=== PATIENT | male | born 1990 | race Caucasian/White ===

== ENCOUNTER 2023-11-23 11:25 | Emergency (ER) | payer OTHER, SELFPAY ==
[2023-11-23 11:32] VITALS: BP 138/75; PULSE 53; RESP 18; TEMP 37.1; O2SAT 100
--- NOTE | 2023-11-23 12:27 | ED.GENADULT ---
HPI - General Adult General Chief complaint: Dental/Oral Stated complaint: Toothache Source: patient Mode of arrival: ambulatory Limitations: no limitations History of Present Illness HPI narrative: Patient presents for evaluation of left lower dental pain. Symptom onset this morning. He has a known dental fracture in the affected area. Pain is constant, throbbing, 8/10 in severity. He took some [id number] agents without considerable improvement thereafter. No fever, chills, nausea, vomiting. He does use an electronic cigarette. Related Data Allergies Allergy/AdvReac Type Severity Reaction Status Date / Time No Known Allergies Allergy Verified 11/23/23 11:35 Review of Systems Review of Systems: CONSTITUTIONAL: Denies fever, chills, or sweats. EYES: Denies visual changes, redness, or discharge. ENT: Reports left lower dental pain. Denies rhinorrhea, congestion, sore throat, or otalgia. CARDIOVASCULAR: Denies chest pain, palpitations, or edema. RESPIRATORY: Denies cough or dyspnea. GASTROINTESTINAL: Denies abdominal pain, nausea, vomiting, or diarrhea. GENITOURINARY: Denies dysuria or hematuria. SKIN: Denies rash or itching. MUSCULOSKELETAL: Denies back pain, joint pain, or myalgia. NEUROLOGIC: Denies headache, numbness, dizziness, or weakness. PSYCHIATRIC: Denies anxiety or depression. [facility] Past Medical History Medical History No pertinent past medical history Surgical History Surgical History No pertinent past surgical history Family History Family History Mother Family history non-contributory Social History Social History Smoking status: Current every day smoker Tobacco type: e-cigarettes/vaping Substance use: never Gender identity (if verbalized by the patient): Male Spiritual care concerns: No Exam Narrative: GENERAL: Well-appearing, well-nourished, and in no acute distress. HEAD: Normocephalic, atraumatic. EYES: PERRLA and EOMI. ENT: Nares clear, no rhinorrhea or epistaxis. Mucous membranes moist. Oropharynx without tonsillar hypertrophy exudate or other lesions. There is a fracture of tooth #19. There is some swelling in the gumline adjacent to that fluctuance to suggest a drainable fluid collection. Bilateral TMs p[place] nonbulging NECK: Supple. No adenopathy or masses. No carotid bruits or JVD CHEST: Clear to auscultation. No respiratory distress. No wheezes rales or rhonchi HEART: Regular rate and rhythm. No murmur heard. Normal peripheral pulses. ABDOMEN: Soft, nontender, nondistended, normal active bowel sounds. EXTREMITIES: Normal range of motion. No edema. SKIN: Warm, dry, no rash. NEURO: No focal deficits. Alert and oriented x3. PSYCH: Normal mood and affect. Course Course Emergency Course: This is a 33-year-old male who presented for evaluation dental pain. He has a dental fracture in the affected area. Will treat with amoxicillin. Ibuprofen for pain. Follow-up with dentist. Advised on smoking cessation. Go to the ER for worsening symptoms. Patient in agreement with care. Level of Care: Express Care Visit Vital Signs Vital signs: Vital Signs Temperature 37.1 C 11/23/23 11:32 Pulse Rate 53 L 11/23/23 11:32 Respiratory Rate 18 11/23/23 11:32 Blood Pressure 138/75 11/23/23 11:32 Pulse Oximetry 100 11/23/23 11:32 Oxygen Delivery Room Air 11/23/23 11:32 Temperature 37.1 C 11/23/23 11:32 Pulse Rate 53 L 11/23/23 11:32 Respiratory Rate 18 11/23/23 11:32 Blood Pressure 138/75 11/23/23 11:32 Pulse Oximetry 100 11/23/23 11:32 Oxygen Delivery Room Air 11/23/23 11:32 Medical Decision Making Vital Signs Vital Signs: Vital Signs Temperature 37.1 C 11/22
== END 2023-11-23 12:26 | disposition home or self-care (01) ==
PROVIDERS: Emergency Provider Nurse Practitioner
DX: S02.5XXA Fracture of tooth (traumatic), initial encounter for closed fracture (principal); X58.XXXA Exposure to other specified factors, initial encounter; F17.290 Nicotine dependence, other tobacco product, uncomplicated
CPT/HCPCS: 99203; G0463

== ENCOUNTER 2024-03-15 13:26 | Emergency (ER) | payer OTHER, SELFPAY ==
[2024-03-15 13:41] VITALS: BP 121/60; PULSE 60; RESP 16; TEMP 36.9; O2SAT 99
--- NOTE | 2024-03-15 13:55 | ED_ITS ---
HPI - Back Pain/Injury General Chief Complaint: Back Pain/Injury Stated Complaint: Back Pain Time Seen by Provider: 03/15/24 13:55 Source: patient and RN notes reviewed Mode of arrival: ambulatory Limitations: no limitations History of Present Illness HPI Narrative: 33-year-old male presents with concern for low back pain. Reports pain started 3 days ago, reports he has had back pain in the past but this seems to be more painful than usual. He denies injury or trauma. He reports he can find a position of comfort and then it worsens with certain movements. He reports he does lift heavy boxes at work. He denies loss of bowel or bladder function, perianal seizure, abdominal pain, fever. He denies weakness in any extremity. He reports he took Aleve and Tylenol today without relief. MD elicited complaint: back pain Related Data Allergies Allergy/AdvReac Type Severity Reaction Status Date / Time No Known Allergies Allergy Verified 11/23/23 11:35 Review of Systems Review of Systems: CONSTITUTIONAL: Denies malaise, chills, sweats, or fever. CARDIOVASCULAR: Denies chest pain, palpitations, or edema. RESPIRATORY: Denies cough or dyspnea. GASTROINTESTINAL: Denies abdominal pain, nausea, vomiting, diarrhea, loss of bowel function GENITOURINARY: Denies dysuria, hematuria, frequency, loss of bladder function. SKIN: Denies rash or itching. MUSCULOSKELETAL: Reports low back pain NEUROLOGIC: Denies numbness, weakness, or headache. All systems reviewed & are unremarkable except as noted in HPI and below PMFSH Past Medical History Medical History (Updated 03/15/24 @ 14:06 by Anali Stack NP) No pertinent past medical history Surgical History Surgical History No pertinent past surgical history Family History Family History Mother Family history non-contributory Social History Social History (Updated 11/23/23 @ 12:28 by DANIEL Vega, ) Smoking status: Current every day smoker Tobacco type: e-cigarettes/vaping Substance use: never Gender identity (if verbalized by the patient): Male Spiritual care concerns: No Comments At time of signature, agree with nursing past medical, surgical, social and family history. There is no relevant family history pertinent to the presenting complaint Exam Narrative: GENERAL: Well-appearing, well-nourished, and in no acute distress. HEAD: Normocephalic, atraumatic. EYES: PERRLA and EOMI. NECK: Supple. No lymphadenopathy. CHEST: Clear to auscultation. No respiratory distress. HEART: Regular rate and rhythm. Distal pulses palpable and equal, cap refill <3 seconds ABDOMEN: Soft, nontender, nondistended, normal active bowel sounds, no palpable or pulsatile masses. No CVA tenderness MUSCULOSKELETAL: Normal range of motion and strength in all extremities; 5/5 strength with hip flexion and extension, dorsiflexion and extension, knee flexion and extension, plantar flexion and extension. Normal sensation in dermatomal distributions with sensitivity to light touch and pain. No midline back tenderness to palpation. No paraspinal tenderness. Transfers from lying to sitting to standing. SKIN: Warm, dry, no rash. No ecchymosis, erythema, open wounds to back. NEURO: No focal deficits. Alert and oriented x3. Reflexes intact. Normal gait. PSYCH: Normal mood and affect Course Course Emergency Course: Patient is aware of diagnosis, understands and agrees to treatment plan. Anticipatory guidance given. Patient agrees to follow-up as directed and is aware of reasons to seek care at the emergency department. Portions of this record may have been created with voice recognition software Level of Care: Express Care Visit Vital Signs Vital signs: Vital Signs Temperature 98.5 F 03/15/24 13:41 Pulse Rate 60 03/15/24 13:41 Respiratory Rate 16 03/15/24 13:41 Blood Pressure 121/60 03/15/24 13:41 Pulse Oximetry 99 03/15/24 13:41 Oxygen Delivery Room Air 03/15/24 13:41 Temperature 98.5 F 03/15/24 13:41 Pulse Rate 60 03/15/24 13:41 Respiratory Rate 16 03/15/24 13:41 Blood Pressure 121/60 03/15/24 13:41 Pulse Oximetry 99 03/15/24 13:41 Oxygen Delivery Room Air 03/15/24 13:41 Reviewed. MDM - Back Pain/Injury MDM Narrative Medical decision making narrative: I evaluated this in the express care. History is obtained from patient who is an independent historian and physical exam was performed.? Available medical records were reviewed. ? Exam findings and relevant testing show no acute concerns or changes; patient is non-toxic appearing and is in no distress. No risk factors or findings concerning for epidural abscess, diskitis, vertebral osteomyelitis, cord compression, cauda equina, vertebral fracture or bone malignancy, AAA, or pyelonephritis. Patient instructed to consider further imaging and workup through their primary care physician as an outpatient if symptoms persist. ? Differential diagnosis and treatment plan were discussed with the patient. Patient agrees with discussion and after shared medical decision making agrees with plan of care. All questions were answered to the patient's satisfaction. Patient is appropriate for outpatient treatment and follow-up. Critical Care Time Critical Care Time Critical Care Time: No Discharge Plan Discharge Clinical Impression: Nonspecific low back pain Patient Disposition: Home, Self-Care Condition: Stable Instructions: Back Pain (ED) Additional Instructions: Please follow up with your Primary Care Doctor within 48-72 hours - call for an appointment. Walking and other gentle exercising several times a week has been shown to improve back pain; bed rest is not recommended. Take Motrin 600-800mg every 6-8 hours with food for the next 2-3 days, take muscle relaxers every 8 hours as needed for muscle spasm- do not drive or make any important decisions while on this medication for it can make you drowsy. You may apply heat or cold to the area as needed. If you experience any worsening pain, swelling, numbness, weakness please go to ER. Contact your doctor or go to the emergency department if you develop problems with bladder or bowel function, weakness or loss of feeling in one or both of your legs, or any other serious concerns. Prescriptions: New cyclobenzaprine 10 mg tablet 10 mg PO TID PRN (Reason: muscle spasm) Qty: 20 0RF prednisone 50 mg tablet 50 mg PO DAILY 5 Days Qty: 5 0RF Follow-up/Referrals: PHYSICIAN,CABLE SPLICER APPRENTICE [Primary Care Provider] - Stand Alone Forms: Work/School Release IP Time of Disposition: 14:06
== END 2024-03-15 14:10 | disposition home or self-care (01) ==
PROVIDERS: Emergency Provider Nurse Practitioner
DX: M54.50 Low back pain, unspecified (principal); F17.290 Nicotine dependence, other tobacco product, uncomplicated
CPT/HCPCS: 99213; G0463

== ENCOUNTER 2024-05-26 09:20 | Emergency (ER) | payer OTHER, SELFPAY ==
[2024-05-26 09:24] VITALS: BP 119/71; PULSE 88; RESP 16; TEMP 36.6; O2SAT 100
--- OUTSIDE RECORDS SUMMARY | 2024-05-26 09:50 | XMS_ITS | Clinical Summary ---
Author Organization [facility] [email or web address] [facility] Address [address] [place] [id number] Care Team Providers Care Snapper On Name Role Phone Unavailable Primary Care Provider Unavailabl e Medications fluticasone propionate (FLONASE) 50 mcg/spray [place], Suspension nasal inhalerIndicatio ns:Allergic rhinitis, unspecified seasonality, unspecified trigger Administer 2 Sprays in each nostril daily. 16 Gram Active Active Problems Problem Noted Date Diagnosed Date Allergic rhinitis 02/10/2023 Immunizations Immunization Administration Dates Next Due (ADACEL/BOOSTRIX)(10 YR UP) TDAP VACCINE, 0.5ML, IM 02/10/2023 INFLUENZA VACCINE QUADRIVALENT 3 YR UP PF IM 08/2021 INFLUENZA VACCINE QUADRIVALENT 6 MOS UP PF IM Family History Medical History Relation Name Comments Other Father cysticfibrosis due to surgery failure No Known Problems Maternal Grandfather Diabetes Mother Arrhythmia Paternal Grandfather Relation Name Status Comments Brother 1 Alive Brother 2 Alive Daughter Alive Father Maternal Grandfather Maternal Grandmother Alive Mother Alive Paternal Grandfather Paternal Grandmother Alive Sister 1 Alive Sister 2 Alive Son Alive Social History Tobacco Use Types Packs/Day Years Used Date Smoking Tobacco: Former Cigarettes 0.5 15 0 07/30/2007 - 07/29/2022 Smokeless Tobacco: Never Tobacco Cessation:Counseling Given: Not Answered Alcohol Use Standard Drinks/Week Comments Not Currently 0 (1 standard drink = 0.6 oz pur e alcohol) special occasions Sex and Gender Information Value Date Recorded Sex Assigned at Not on file Legal Sex Male 9:42 AM CDT Gender Identity Not on file Sexual Orientation Not on file Last Filed Vital Signs Vital Sign Reading Time Taken Comments Blood Pressure 112/58 02/10/2023 7:47 AM CDT Pulse 71 02/10/2023 7:47 AM CDT Temperature 36.9 ??C (98.4 ??F) 02/10/2023 7:47 AM CD T Respiratory Rate - - Oxygen Saturation 98% 02/10/2023 7:47 AM CDT Inhaled Oxygen Concentration - - Weight 118.5 kg (261 lb 3.2 oz) 02/10/2023 7:47 AM CDT Height 193 cm (6' 4 ) 02/10/2023 7:47 AM CDT Body Mass Index 31.79 02/10/2023 7:47 AM CDT Plan of Treatment Health Maintenance Due Date Last Done Comments HEPATITIS B VACCINES (1 of 3 - 19+ 3-dose series) 07/11/2011 INFLUENZA VACCINE (#1) 2023 3, 01/23/2022 DTAP/TDAP/TD VACCINES (2 - Td or Tdap) 02/10/2033 02/10/2023 HPV VACCINES Aged Out No longer eligi ble based on patient's age to complete this topic
--- OUTSIDE RECORDS SUMMARY | 2024-05-26 09:51 | XMS_ITS | Clinical Summary ---
Author Organization [facility] Address [address] [place] [address] Care Team Providers Care Etcher Apprentice Name Role Phone No, Physician Primary Care Provider [phone] Allergies No known active allergies Medications No known medications Active Problems No known active problems Social History Tobacco Use Types Packs/Day Years Used Date Smoking Tobacco: Every Day Cigarettes Smokeless Tobacco: Never Tobacco Cessation:Ready to Q uit: Not Asked; Counseling Given: Not Answered Alcohol Use Standard Drinks/Week Comments Not Currently 0 (1 standard drink = 0.6 oz pur e alcohol) Personal Safety Answer Date Recorded Getting School Help Needed Not on file 06/10 Sex and Gender Information Value Date Recorded Sex Assigned at Not on file 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 Gender Identity Not on file Sexual Orientation Not on file Obstetrics History Last Filed Vital Signs Vital Sign Reading Time Taken Comments Blood Pressure 108/64 10/16/2023 8:48 AM CDT Pulse 68 10/16/2023 8:48 AM CDT Temperature 36.8 ??C (98.3 ??F) 10/16/2023 8:48 AM CD T Respiratory Rate 18 10/16/2023 8:48 AM CDT Oxygen Saturation 98% 10/16/2023 8:48 AM CDT Inhaled Oxygen Concentration - - Weight 120.2 kg (265 lb) 10/16/2023 8:48 AM CDT Height 193 cm (6' 4 ) 10/16/2023 8:48 AM CDT Body Mass Index 32.26 10/16/2023 8:48 AM CDT Plan of Treatment Health Maintenance Due Date Last Done Comments Depression Screening 1992 Hepatitis C Screening 1992 Pneumococcal vaccine <65 (1 of 2 - PCV) 1998 Regular Well Visit/Exam 18-64 2010 Covid-19 Vaccine ( season) 2023 08/01/2020 Influenza Vaccine (#1) 2023 01/16/2023, 2021 DTaP/Tdap/Td Vaccine (8 - Td or Tdap) 02/10/2033 02/10/2023, 11/11/2006, 07/13/2003, Additional history exists Varicella Vaccines Completed 11/11/2006, 08/13/2002 HPV Vaccines Aged Out No longer eligi ble based on patient's age to complete this topic Insurance [employer] Care Teams Etcher Apprentice Relationship Specialty Start Date End Date No, Physician PCP - General 04/05/21
--- OUTSIDE RECORDS SUMMARY | 2024-05-26 09:51 | XMS_ITS | Referral Summary ---
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
--- OUTSIDE RECORDS SUMMARY | 2024-05-26 09:51 | XMS_ITS | Clinical Summary ---
Author Organization [facility] Address [address] [place] [address] Phone Care Team Providers Care Labor Utilization Superintendent Name Role Phone Nazia Corona APRN, PRODUCT HANDLER Primary Care Provider [phone] Allergies No known active allergies Medications naproxen (NAPROSYN) 500 MG TabletIndicati ons:Pain Take 1 Tablet by mouth 2 times daily as needed for Mild or more severe pain. Indications: Pain 30 Tablet 2 5 Active cyclobenzaprin e (FLEXERIL) 5 MG TabletIndicati ons:Muscle Spasm Take 2 Tablets by mouth 3 times daily as needed for Muscle spasms for up to 14 days. Indications: Muscle Spasm 42 Tablet 5 05/26/19 25 Active Lidocaine (HM Lidocaine Patch) 4 % Patch 1 Patch by Transdermal route every 24 hours. 30 Patch 5 Active naproxen (NAPROSYN) 500 MG Tablet Take 1 Tablet by mouth 2 times daily as needed for Mild or more severe pain. 20 Tablet 4 05/12/19 25 Discontin ued(Dupli stephanie Order) naproxen (NAPROSYN) 500 MG Tablet Take 1 Tablet by mouth 2 times daily as needed for Mild or more severe pain. 30 Tablet 4 05/12/19 25 Discontin ued(Reord er) Cyclobenzaprin e HCl (FLEXERIL PO) Take by mouth. 0 25 Discontin ued(Thera py completed ) Active Problems No known active problems Encounters Date Type Department Care Team Description 05/20/2024 3:15 PM WOOD CARVING LATHE OPERATOR Physical Therapy [facility] at [facility] [address], [address] [place] [address] Oehl, Nazia N, CORNER TRIMMER OPERATOR, PRODUCT HANDLER Urban De La Torre, SILVANO Acute left lumbar radiculopathy (Primary Dx) Discharge Disposition: Discharged to home or Selfcare 05/20/2024 Travel 05/12/2024 7:30 AM WOOD CARVING LATHE OPERATOR [facility] [facility] [place] [address] Oehl, Nazia N, CORNER TRIMMER OPERATOR, PRODUCT HANDLER Acute left lumbar radiculopathy (Primary Dx) Discharge Disposition: Discharged to home or Selfcare 05/12/2024 Travel 05/08/2024 Plan of Care [facility] [address], [address] [place] [address] 05/06/2024 3:45 PM WOOD CARVING LATHE OPERATOR [facility] [address] [place] [address] Oehl, July N, CORNER TRIMMER OPERATOR, PRODUCT HANDLER Monse Wharton, PT Abnormal posture (Primary Dx); Acute left lumbar radiculopathy; Weakness Discharge Disposition: Discharged to home or Selfcare 05/06/2024 Travel 04/05/2024 Results [facility] [facility] [place] [address] Oehl, July N, CORNER TRIMMER OPERATOR, PRODUCT HANDLER 04/05/2024 Results [facility] [address] [facility] [place] [address] Oehl, July N, CORNER TRIMMER OPERATOR, PRODUCT HANDLER 04/03/2024 8:15 AM WOOD CARVING LATHE OPERATOR - 04/03/2024 11:59 PM WOOD CARVING LATHE OPERATOR [facility] [address] [place] [address] Oehl, Nazia N, CORNER TRIMMER OPERATOR, PRODUCT HANDLER Discharge Disposition: Discharged to home or Selfcare 04/03/2024 Travel 03/31/2024 4:15 PM WOOD CARVING LATHE OPERATOR [facility] [place] [address] Nazia Corona APRN, CNP Acute left lumbar radiculopathy (Primary Dx) Discharge Disposition: Discharged to home or Selfcare 03/30/2024 6:16 AM WOOD CARVING LATHE OPERATOR - 03/30/2024 6:57 AM WOOD CARVING LATHE OPERATOR Emergency [facility] [address] [place] [address] Rodolfo Lacey MD Acute midline low back pain without sciatica Discharge Disposition: Discharged to home or Selfcare 03/30/2024 Travel 03/29/2024 4:00 PM WOOD CARVING LATHE OPERATOR Office Visit [facility] [address] [place] [address] Nazia Corona APRN, CNP Need for influenza vaccination (Primary Dx); Environmental and seasonal allergies; Gastroesophageal reflux disease without esophagitis; Need for hepatitis C screening test; Encounter for health maintenance examination in adult; Hypertrophy tonsils Discharge Disposition: Discharged to home or Selfcare 03/29/2024 Travel 03/24/2024 Telephone [facility] [address] [place] [address] Nazia Corona APRN, CNP from Last 3 Months Immunizations Immunization Administration Dates Next Due Covid-19 Vaccine, Vector-nr, Rs-ad26, Pf, 0.5 Ml (CDNlion/J&Trak) 08/01/2020 DTAP VACCINE 11/25/1997 DTP-Hib 11/13/1993, 3,1992,09/15 Hepatitis A, Pediatric, Unsp ecified Formulation 11/11/2006 Hepatitis B Vaccine,unspecif ied Formulation 01/29/1993,1992,1992 Influenza Vaccine, Quadrivalent, PF 01/16/2023,1 Influenza,Split Virus,Trivalent,Injectable,PF 03/29/2024 MMR Vaccine 11/25/1997,11/13/1993 Meningococcal C Conjugate Vaccine 11/11/2006 OPV 11/13/1993,1992,1992 Oral Polio Vaccine, Unspecif ied Formulation 11/25/1997 TD VACCINE 07/13/2003 TDAP Vaccine 02/10/2023,11/11/2006 Varicella Vaccine Live 11/11/2006,08/13/2002 Family History Medical History Relation Name Comments Cystic Fibrosis Father Diabetes Maternal Grandfather Diabetes Mother Relation Name Status Comments Brother Alive Father Maternal Grandfather Maternal Grandmother Mother Paternal Grandfather Paternal Grandmother Alive Sister Alive Social History Tobacco Use Types Packs/Day Years Used Date Smoking Tobacco: Former Cigarettes Smokeless Tobacco: Never Tobacco Cessation:Counseling Given: No Alcohol Use Standard Drinks/Week Comments Not Currently 0 (1 standard drink = 0.6 oz pur e alcohol) Socially [employer] Utilities Answer Date Recorded In the past 12 months has e [employer], gas, oil, or water [employer] threatened to shut off services in your home? No 05/12/2024 Social Connection and Isolation Panel [NHANES] A nswer Date Recorded In a typical week, how many times do you talk on the phone with family, friends, or neighbors? Once a week 05/12/2024 How often do you get together with friends or re latives? Once a week 05/12/2024 How often do you attend mormon or yarsanism serv ices? Never 05/12/2024 Do you belong to any clubs o r organizations such as mormon groups, unions, fraternal or athletic groups, or school groups? No 05/12/2024 How often do you attend meet ings of the clubs or organizations you belong to? Never 05/12/2024 Are you , , di vorced, , never , or living with a partner? Never 05/12/2024 AUDIT-C Answer Date Recorded Q1: How often do you have a drink containing alcohol? Never 05/12/2024 Q2: How many drinks containi ng alcohol do you have on a typical day when you are drinking? Patient does not drink Q3: How often do you have si x or more drinks on one occasion? Never 05/12/2024 Overall Financial Resource Strain (CARDIA) Answe r Date Recorded How hard is it for you to pa y for the very basics like food, housing, medical care, and heating? Not very hard 05/12/2024 PHQ-2 Answer Date Recorded Total Score - Questions 1-9 0 12/2023 [facility] of Occupat ional Health - Occupational Stress Questionnaire Answer Date Recorded Do you feel stress - tense, restless, nervous, or anxious, or unable to sleep at night because your mind is troubled all the time - these days? Only a little 05/12/2024 Exercise Vital Sign Answer Date Recorde d On average, how many days pe r week do you engage in moderate to strenuous exercise (like a brisk walk)? 5 days 05/12/2024 On average, how many minutes do you engage in exercise at this level? 10 min 05/12/2024 Hunger Vital Sign Answer Date Recorded Within the past 12 months, y ou worried that your food would run out before you got the money to buy more. Never true 05/12/19 25 Within the past 12 months, t he food you bought just didn't last and you didn't have money to get more. Never true 05/12/2024 PRAPARE - Transportation Answer Date Re corded In the past 12 months, has l ack of transportation kept you from medical appointments or from getting medications? No 04/22 In the past 12 months, has l ack of transportation kept you from meetings, work, or from getting things needed for daily living? No 05/12/2024 Housing Stability Vital Sign Answer Deejay e Recorded In the last 12 months, was t here a time when you were not able to pay the mortgage or rent on time? No 05/12/2024 In the past 12 months, how m any times have you moved where you were living? 1 05/12/2024 At any time in the past 12 m [facility], were you homeless or living in a usp (including now)? No 05/12/2024 Education Answer Date Recorded What is the highest level of school you have completed or the highest degree you have received? 12th grade 03/29/2024 Sexually Active Control Partners Comments Yes None Female Sex and Gender Information Value Date Recorded Sex Assigned at Not on file Legal Sex Male 3:54 AM WOOD CARVING LATHE OPERATOR Gender Identity Not on file Sexual Orientation Not on file Last Filed Vital Signs Vital Sign Reading Time Taken Comments Blood Pressure 128/76 05/12/2024 7:35 AM WOOD CARVING LATHE OPERATOR Pulse 66 05/12/2024 7:35 AM WOOD CARVING LATHE OPERATOR Temperature 36.7 ??C (98.1 ??F) 05/12/2024 7:35 AM CS T Respiratory Rate 16 05/12/2024 7:35 AM WOOD CARVING LATHE OPERATOR Oxygen Saturation 99% 05/12/2024 7:35 AM WOOD CARVING LATHE OPERATOR Inhaled Oxygen Concentration - - Weight 132.5 kg (292 lb 1.6 oz) 05/12/2024 7:35 AM WOOD CARVING LATHE OPERATOR Height 193 cm (6' 4 ) 05/12/2024 7:35 AM WOOD CARVING LATHE OPERATOR Body Mass Index 35.56 05/12/2024 7:35 AM WOOD CARVING LATHE OPERATOR Plan of Treatment Upcoming Encounters Date Type Department Care Team (Late st Contact Info) Description 05/27/2024 3:15 PM WOOD CARVING LATHE OPERATOR [facility] [address] [place] [address] Oe, July N, CORNER TRIMMER OPERATOR, PRODUCT HANDLER 2 [facility] [address] [place] [address] Urban De La Torre PTA [place] 05/31/2024 3:00 PM WOOD CARVING LATHE OPERATOR [facility] [address] [place] [address] Oe, July N, CORNER TRIMMER OPERATOR, PRODUCT HANDLER 2 [facility] [address] [place] [address] Monse Wharton PT [place] 06/01/2024 3:30 PM WOOD CARVING LATHE OPERATOR Office Visit [facility] - Family Medicine [facility] [place] [address] Oehl, July N, CORNER TRIMMER OPERATOR, PRODUCT HANDLER 2 [facility] [address] [place] [address] 06/03/2024 3:00 PM WOOD CARVING LATHE OPERATOR [facility] [address] [facility], [address] [place] [address] Oehl, July, CORNER TRIMMER OPERATOR, PRODUCT HANDLER 2 [facility] [address] [place] [address] Monse Wharton, PT [place] 06/08/2024 3:15 PM WOOD CARVING LATHE OPERATOR [facility] [address] [facility], [address] [place] [address] Oe, July, CORNER TRIMMER OPERATOR, PRODUCT HANDLER 2 [facility] [address] [place] [address] Urban De La Torre, TRIPE SCRAPER [place] 06/10/2024 3:15 PM WOOD CARVING LATHE OPERATOR [facility] [address] [facility], [address] [place] [address] Oe, July, CORNER TRIMMER OPERATOR, PRODUCT HANDLER 2 [facility] [address] [place] [address] Urban De La Torre, TRIPE SCRAPER [place] 06/15/2024 3:00 PM WOOD CARVING LATHE OPERATOR [facility] [address] [facility], [address] [place] [address] Oe, July, CORNER TRIMMER OPERATOR, PRODUCT HANDLER 2 [facility] [address] [place] [address] Monse Wharton, PT [place] 06/17/2024 3:15 PM WOOD CARVING LATHE OPERATOR [facility] [address] [place] [address] Oehl, July N, CORNER TRIMMER OPERATOR, PRODUCT HANDLER 2 [facility], [address] [place] [address] Urban De La Torre, TRIPE SCRAPER [place] 06/22/2024 3:15 PM WOOD CARVING LATHE OPERATOR [facility] [address] [place] [address] Oehl, July, CORNER TRIMMER OPERATOR, PRODUCT HANDLER 2 [facility], [address] [place] [address] Urban De La Torre, TRIPE SCRAPER [place] 06/24/2024 3:15 PM WOOD CARVING LATHE OPERATOR [facility] [address] [facility], [address] [place] [address] Oehl, July, CORNER TRIMMER OPERATOR, PRODUCT HANDLER 2 [facility], [address] [place] [address] Urban De La Torre, TRIPE SCRAPER [place] 06/29/2024 3:00 PM CDT [facility] [address] [facility], [address] [place] [address] Oehl, July, CORNER TRIMMER OPERATOR, PRODUCT HANDLER 2 [facility], [address] [place] [address] Monse Wharton, PT [place] 07/13/2024 3:30 PM CDT Office Visit [facility] - Family Medicine [facility] [place] [address] Oehl, July, CORNER TRIMMER OPERATOR, PRODUCT HANDLER 2 [facility], [address] [place] [address] Health Maintenance Due Date Last Done Comments SARS-COV-2 Immunization ( - season) 2023 08/01/2020 DTaP/Tdap/Td Immunization (8 - Td or Tdap) 02/10/2033 02/10/2023, 11/11/2006, 07/13/2003, Additional history exists Respiratory Syncytial Virus (RSV) Immunization (Adult) (1 - 1-dose 75+ series) 07/11/2067 Hepatitis B Immunization Completed 993, 1992, 1992 Influenza Immunization Completed , 01/16/2023, 01/23/2022 Hepatitis C Virus (HCV) Screening Completed 04/03/2024 Meningococcal Immunization (ACWY) Aged Out No longer eligible based on patient's age to complete this topic Pneumococcal Immunization Combined Aged Out No longer eligible based on patient's age to complete this topic Rotavirus Immunization Aged Out No lo nger eligible based on patient's age to complete this topic Procedures Procedure Name Priority Date/Time Associated Diagnosis Comments XR LUMBAR SPINE MINIMUM 4 VIEWS Routine 04/03/2024 8:44 AM WOOD CARVING LATHE OPERATOR Acute left lumbar radiculopathy CBC WITH AUTO DIFFERENTIAL Routine 04/03/2024 8:20 AM WOOD CARVING LATHE OPERATOR Encounter for health maintenance examination in adult HEPATITIS C ANTIBODY Routine 04/03/2024 8:20 AM WOOD CARVING LATHE OPERATOR Need for hepatitis C screening test HEMOGLOBIN A1C W/ ESTIMATED GLUCOSE Routine 04/03/2024 8:20 AM WOOD CARVING LATHE OPERATOR Encounter for health maintenance examination in adult THYROID STIMULATING HORMONE (TSH) Routine 04/03/2024 8:20 AM WOOD CARVING LATHE OPERATOR Encounter for health maintenance examination in adult LIPID PANEL Routine 04/03/2024 8:20 AM WOOD CARVING LATHE OPERATOR Encounter for health maintenance examination in adult COMPLETE BLOOD COUNT (CBC) WITH DIFF Routine 04/03/2024 8:20 AM WOOD CARVING LATHE OPERATOR Encounter for health maintenance examination in adult CMP (COMPREHENSIVE METABOLIC PANEL) Routine 04/03/2024 8:20 AM WOOD CARVING LATHE OPERATOR Encounter for health maintenance examination in adult from Last 3 Months Results * XR LUMBAR SPINE MINIMUM 4 VIEWS (04/03/2024 8:44 AM WOOD CARVING LATHE OPERATOR) Anatomical Region Laterality Modality Spine, L-spine N/A Digital Radiogra phy 04/04/2024 12:4 6 PM WOOD CARVING LATHE OPERATOR Impressions 04/04/2024 12:48 PM WOOD CARVING LATHE OPERATOR IMPRESSION: Mild retrolisthesis of L5 on S1. Narrative 04/04/2024 12:48 PM WOOD CARVING LATHE OPERATOR EXAM DESCRIPTION: XR LUMBAR SPINE MINIMUM 4 VIEWS REASON FOR STUDY: pain in low back, tailbone x 1 month. NKI. denies numbness/tingling in legs. pt states recently pain radiates to left knee. ? FINDINGS: Five views submitted with comparison 07/03/2023. No acute fractures are identified. ??There is mild retrolisthesis of L5 on S1. ??The intervertebral disc space heights are normal. THIS IS AN ELECTRONICALLY VERIFIED FINAL REPORT 04/04/2024 12:46 PM - Electronically signed by ??Dre Hunter M.D. MF: [email or web address] D: ??04/04/2024 12:46 PM T: ??04/04/2024 12:46 PM Report ID: [id number] Reading Location: ??[id number] Procedure Note Dre Hunter MD - 04/04/2024 EXAM DESCRIPTION: XR LUMBAR SPINE MINIMUM 4 VIEWS REASON FOR STUDY: pain in low back, tailbone x 1 month. NKI. denies numbness/tingling in legs. pt states recently pain radiates to left knee. FINDINGS: Five views submitted with comparison 07/03/2023. No acute fractures are identified. There is mild retrolisthesis of L5 on S1. The intervertebral disc space heights are normal. THIS IS AN ELECTRONICALLY VERIFIED FINAL REPORT 04/04/2024 12:46 PM - Electronically signed by Dre Hunter M.D. MF: [id number] Report ID: [id number] Reading Location: [id number] IMPRESSION: Mild retrolisthesis of L5 on S1. July N Chloe ABEBE CNP IMG DIAGNOSTIC ORDERABLES Final Result * HEMOGLOBIN A1C W/ ESTIMATED GLUCOSE (04/03/2024 8:20 AM WOOD CARVING LATHE OPERATOR) HGB-A1C 4.9 4.0 - 6.0 % 04/03/2024 9:21 AM WOOD CARVING LATHE OPERATOR [facility] Est Average Glucose 93.9 mg/dL 04/03/2024 9:21 AM WOOD CARVING LATHE OPERATOR [facility] Blood Venipuncture / Unknown 04/03/2024 8:20 AM WOOD CARVING LATHE OPERATOR 04/03/2024 9:06 AM WOOD CARVING LATHE OPERATOR Narrative [facility] - 04/03/2024 9:21 AM WOOD CARVING LATHE OPERATOR HEMOGLOBIN A1C: DIABETIC PATIENTS: WELL-CONTROLLED: ?? 6.2 - 7.0 INTERMEDIATE WELL-CONTROLLED: ??7.0 - 9.0 POORLY-CONTROLLED: ??>9.0 July Chloe ABEBE CNP CHEMISTRY ORDERABLES Michelle l Result [facility] [address] [place] [address] * CBC WITH AUTO DIFFERENTIAL (04/03/2024 8:20 AM WOOD CARVING LATHE OPERATOR) WBC 7.06 4.00 - 12.00 10(3)/mcL 04/03/2024 9:12 AM WOOD CARVING LATHE OPERATOR [facility] RBC 4.71 4.40 - 5.80 10(6)/mcL 04/03/2024 9:12 AM WOOD CARVING LATHE OPERATOR [facility] HEMOGLOBIN (HGB) 14.3 13.0 - 16.5 g/dL 04/03/2024 9:12 AM WOOD CARVING LATHE OPERATOR [facility] HEMATOCRIT (HCT) 41.5 38.0 - 50.0 % 04/03/2024 9:12 AM WOOD CARVING LATHE OPERATOR [facility] MCV 88.1 82.0 - 96.0 fL 04/03/2024 9:12 AM [facility] MCH 30.4 26.0 - 32.0 pg 04/03/2024 9:12 AM [facility] MCHC 34.5 31.0 - 36.0 g/dL 04/03/2024 9:12 AM [facility] PLATELET COUNT 233 140 - 440 10(3)/[facility] 04/03/2024 9:12 AM [facility] RDW 11.9 11.8 - 15.5 % 04/03/2024 9:12 AM [facility] MPV 9.6 8.0 - 12.6 fL 04/03/2024 9:12 AM [facility] NEUTROPHILS 55.9 40.0 - 68.0 % 04/03/2024 9:12 AM [facility] LYMPHOCYTES 29.5 19.0 - 49.0 % 04/03/2024 9:12 AM [facility] MONOCYTES 9.8 3.0 - 13.0 % 04/03/2024 9:12 AM [facility] EOSINOPHILS 4.0 0.0 - 8.0 % 04/03/2024 9:12 AM [facility] BASOPHILS 0.8 0.0 - 1.0 % 04/03/2024 9:12 AM [facility] ABSOLUTE NEUTROPHILS 3.95 1.40 - 5.30 10(3)/mcL 04/03/2024 9:12 AM [facility] ABSOLUTE LYMPHOCYTES 2.08 0.90 - 3.30 10(3)/mcL 04/03/2024 9:12 AM [facility] ABSOLUTE MONOCYTES 0.69 0.10 - 0.90 10(3)/mcL 04/03/2024 9:12 AM [facility] ABSOLUTE EOSINOPHIL 0.28 0.00 - 0.50 10(3)/[facility] 04/03/2024 9:12 AM [facility] ABSOLUTE BASOPHILS 0.06 0.00 - 0.10 10(3)/mcL 04/03/2024 9:12 AM WOOD CARVING LATHE OPERATOR [facility] NRBC PER 100 WBC 0 04/03/20 9:12 AM WOOD CARVING LATHE OPERATOR [facility] Blood Venipuncture / Unknown 04/03/2024 8:20 AM WOOD CARVING LATHE OPERATOR 04/03/2024 9:06 AM WOOD CARVING LATHE OPERATOR July N Chloe ABEBE CNP HEMATOLOGY ORDERABLES Fin al Result [facility] [place] [address] * THYROID STIMULATING HORMONE (TSH) (04/03/2024 8:20 AM WOOD CARVING LATHE OPERATOR) TSH 1.049 0.300 - 5.000 mIU/L 04/03/2024 9:52 AM WOOD CARVING LATHE OPERATOR [facility] Blood Venipuncture / Unknown 04/03/2024 8:20 AM WOOD CARVING LATHE OPERATOR 04/03/2024 9:06 AM WOOD CARVING LATHE OPERATOR July N Chloe ABEBE CNP CHEMISTRY ORDERABLES Michelle l Result Performing Organization Address City/[facility]/ZIP Co de Phone Number [facility] [address] [place] [address] * (ABNORMAL) LIPID PANEL (04/03/2024 8:20 AM WOOD CARVING LATHE OPERATOR) CHOLESTEROL 128 <200 mg/dL 04/03/2024 9:40 AM WOOD CARVING LATHE OPERATOR [facility] TRIGLYCERIDES 39 <150 mg/dL 04/03/2024 9:40 AM WOOD CARVING LATHE OPERATOR [facility] HDL CHOLESTEROL 44 >40 mg/dL 9:40 AM WOOD CARVING LATHE OPERATOR [facility] LDL 76 <130 mg/dL 04/03/2024 9:40 AM WOOD CARVING LATHE OPERATOR [facility] VLDL 8(L) 10 - 50 mg/dL 04/03/2024 9:40 AM WOOD CARVING LATHE OPERATOR [facility] CHOL/HDL RATIO 2.9 0.0 - 4.4 04/03/2024 9:40 AM WOOD CARVING LATHE OPERATOR [facility] NON-HDL CHOLESTEROL 84 <130 mg/dL 04/03/2024 9:40 AM WOOD CARVING LATHE OPERATOR [facility] IS THE PATIENT REQUIRED TO BE FASTING? Yes 04/03/2024 9:40 AM WOOD CARVING LATHE OPERATOR [facility] HAS THE PATIENT BEEN FASTING? Yes 04/03/2024 9:40 AM WOOD CARVING LATHE OPERATOR [facility] Blood Venipuncture / Unknown 04/03/2024 8:20 AM WOOD CARVING LATHE OPERATOR 04/03/2024 9:06 AM WOOD CARVING LATHE OPERATOR July N Chloe ABEBE, PRODUCT HANDLER CHEMISTRY ORDERABLES Michelle l Result Performing Organization Address [facility] Co de Phone Number [facility] [address] [place] [address] * HEPATITIS C ANTIBODY (04/03/2024 8:20 AM WOOD CARVING LATHE OPERATOR) hepatitis C antibody 0.11 <1 S/CO 04/03/2024 3:20 PM WOOD CARVING LATHE OPERATOR [facility] Comment: Signal/Cutoff ratio ??< 0.79 is Nondetected Signal/Cutoff ratio 0.80-0.99 is Grayzone Signal/Cutoff ratio > 0.99 is Detected Supplemental assays are recommended if signal/cutoff ratio is >/=1.00. ??Signal/cutoff ratio result >/= 5.00 is 97% predictive of positivity for recombinant immunoblot assay (RIBA) and will be reported to the [place] Department of Public Health as required. Blood Venipuncture / Unknown 04/03/2024 8:20 AM WOOD CARVING LATHE OPERATOR 04/03/2024 9:06 AM WOOD CARVING LATHE OPERATOR july N Chloe ABEBE, PRODUCT HANDLER CHEMISTRY ORDERABLES Michelle l Result Performing Organization Address City/[facility]/ZIP Co de Phone Number [facility] [address] [place] [address], [place] * (ABNORMAL) CMP (COMPREHENSIVE METABOLIC PANEL) (04/03/2024 8:20 AM [facility]) SODIUM 141 136 - 145 mmol/L 04/03/2024 9:40 AM [facility] POTASSIUM 4.0 3.5 - 5.1 mmol/L 04/03/2024 9:40 AM [facility] CHLORIDE 109(H) 98 - 107 mmol/L 04/03/2024 9:40 AM [facility] CO2, VENOUS 27 22 - 30 mmol/L 04/03/2024 9:40 AM [facility] ANION GAP 9.0 <18.0 mmol/L 04/03/2024 9:40 AM [facility] GLUCOSE 90 70 - 99 mg/dL 04/03/2024 9:40 AM [facility] BUN 17 9 - 21 mg/dL 04/03/2024 9:40 AM [facility] CREATININE, BLOOD 1.04 0.70 - 1.30 mg/dL 04/03/2024 9:40 AM [facility] BUN/CREATININE RATIO 16 12 - 20 ratio 04/03/2024 9:40 AM [facility] TOTAL PROTEIN 6.6 6.3 - 8.2 g/dL 04/03/2024 9:40 AM [facility] ALBUMIN 3.8 3.5 - 5.0 g/dL 04/03/2024 9:40 AM [facility] A/G RATIO 1.4 1.0 - 2.2 04/03/2024 9:40 AM [facility] CALCIUM 8.9 8.7 - 10.5 mg/dL 04/03/2024 9:40 AM [facility] T BILI 0.9 0.2 - 1.2 mg/dL 04/03/2024 9:40 AM [facility] SGOT (AST) 16 5 - 34 U/L 04/03/2024 9:40 AM [facility] SGPT (ALT) 20 0 - 55 U/L 04/03/2024 9:40 AM WOOD CARVING LATHE OPERATOR [facility] ALKALINE PHOSPHATASE 48 40 - 150 U/L 04/03/2024 9:40 AM WOOD CARVING LATHE OPERATOR [facility] IS THE PATIENT REQUIRED TO BE FASTING? No 04/03/2024 9:40 AM WOOD CARVING LATHE OPERATOR [facility] GFR, ESTIMATED >60 >=60 04/03/2024 9:40 AM WOOD CARVING LATHE OPERATOR [facility] Comment: Creatinine Clearance is the preferred criteria for selecting drug dose adjustments in renally impaired patients. ??The GFR is provided as additional pertinent clinical information. GFR is reported in mL/min/1.73 sq m. Calculation based on the Chronic Kidney Disease Epidemiology Collaboration (CKD- EPI) equation refit without adjustment for race. GFR, EST. >60 >=60 024 9:40 AM WOOD CARVING LATHE OPERATOR [facility] GFR, EST. NONAFRICAN >60 >=60 04/03/2024 9:40 AM WOOD CARVING LATHE OPERATOR [facility] Blood Venipuncture / Unknown 04/03/2024 8:20 AM WOOD CARVING LATHE OPERATOR 04/03/2024 9:06 AM WOOD CARVING LATHE OPERATOR july Chloe HALLN, PRODUCT HANDLER CHEMISTRY ORDERABLES Michelle l Result [facility] [address] [place] [address] from Last 3 Months Insurance [employer] Care Teams Labor Utilization Superintendent Relationship Specialty Start Date End Date Chloe, July N, CORNER TRIMMER OPERATOR, PRODUCT HANDLER [address] [place] [id number] PCP - General Advanced Practice Nurse 03/29/24
--- NOTE | 2024-05-26 10:07 | ED.NAVMDI ---
HPI - Nausea/Vomiting/Diarrhea General Chief complaint: Nausea/Vomiting/Diarrhea Stated complaint: Nausea/Diarrhea Time Seen by Provider: 05/26/24 10:07 Source: patient, RN notes reviewed and old records reviewed Mode of arrival: ambulatory Limitations: no limitations History of Present Illness HPI Narrative: 33-year-old male who presents to [facility] with complaints of chills and sweats since Friday with fever, nausea and vomiting and diarrhea started on Friday. Patient reports no abdominal pain states that he did vomit X2 today prior to arrival in clinic. Patient reports that he has been taking DayQuil and NyQuil for his symptoms. MD elicited complaint: nausea, vomiting and diarrhea Onset (ago): day(s) (5) Description of vomiting: food contents and watery Description of diarrhea: watery and other (loose) Associated nausea: Yes Associated abdominal pain: No Severity: moderate Treatment prior to arrival: other (DayQuil and NyQuil) Related Data Home Medications ?Medication ?Instructions ?Recorded ?Confirmed ?Last Taken ?Type naproxen 500 mg tablet mg 05/26/24 Unknown History Allergies Allergy/AdvReac Type Severity Reaction Status Date / Time No Known Allergies Allergy Verified 05/26/24 09:41 Review of Systems Review of Systems: CONSTITUTIONAL:Reports malaise, chills, sweats, or fever. EYES: Denies visual changes, redness, or discharge. ENT: Reports rhinorrhea, congestion, no sinus pain, no otalgia and no sore throat. CARDIOVASCULAR: Denies chest pain, palpitations, or edema. RESPIRATORY: Reports cough.? Denies dyspnea. GASTROINTESTINAL: Denies abdominal pain,positive for nausea, vomiting, diarrhea SKIN: Denies rash or itching. MUSCULOSKELETAL: Denies myalgia. NEUROLOGIC: Denies headache. All systems reviewed & are unremarkable except as noted in HPI and below PMFSH Past Medical History Medical History History of dental problems Back pain Surgical History Surgical History No pertinent past surgical history Family History Family History Mother Family history non-contributory Social History Social History Smoking status: Current every day smoker Tobacco type: e-cigarettes/vaping Substance use: never Gender identity (if verbalized by the patient): Male Spiritual care concerns: No Comments At time of signature, agree with nursing past medical, surgical, social and family history. There is no relevant family history pertinent to the presenting complaint Exam Narrative: GENERAL: Well-appearing, well-nourished, and in no acute distress. HEAD: Normocephalic EYES: PERRLA, conjunctivae clear ENT: Nares clear, turbinates edematous and erythematous, clear discharge. Mucous membranes moist. TM pearly diego with dull light reflex bilaterally; no tragal tenderness. Oropharynx erythematous without lesions. Tonsils red not enlarged and without exudate, no drooling, no hoarseness, no trismus, uvula midline.post nasal drainage NECK: Supple. No lymphadenopathy CHEST: Clear to auscultation, breath sounds equal. No wheezing, rhonchi, rales, or stridor. No respiratory distress, speaks in full sentences.dry cough, SAO2 100% on room air HEART: Regular rate and rhythm. No murmur heard. SKIN: Warm, dry, no rash. NEURO: Alert and oriented x3. PSYCH: Normal mood and affect Course Course Emergency Course: Patient is aware of diagnosis, understands and agrees to treatment plan.? Anticipatory guidance given.? Patient agrees to follow-up as directed and is aware of reasons to seek care at the emergency department. Portions of this record may have been created with voice recognition software Level of Care: Express Care Visit Vital Signs Vital signs: Vital Signs Temperature 36.6 C 05/26/24 09:24 Pulse Rate 88 05/26/24 09:24 Respiratory Rate 16 05/26/24 09:24 Blood Pressure 119/71 05/26/24 09:24 Pulse Oximetry 100 05/26/24 09:24 Oxygen Delivery Room Air 05/26/24 09:24 Temperature 36.6 C 05/26/24 09:24 Pulse Rate 88 05/26/24 09:24 Respiratory Rate 16 05/26/24 09:24 Blood Pressure 119/71 05/26/24 09:24 Pulse Oximetry 100 05/26/24 09:24 Oxygen Delivery Room Air 05/26/24 09:24 Reviewed MDM - Nausea/Vomiting/Diarrhea Differential Diagnosis Differential diagnosis: Likely traveler's diarrhea, gastroenteritis and other (viral syndrome, strep pharyngitis) Medical Records Attestation: I reviewed the patient's medical records. Lab Data Attestation: I reviewed the patient's lab results. Lab results narrative: Influenza A negative, Influenza B negative, COVID antigen negative, Strep screen negative, culture sent Labs: Lab Results 05/26/24 Range/Units 10:19 POC Influenza A Ag Negative (Negative) POC Influenza B Ag Negative (Negative) POC SARS CoV-2 Ag Negative (Negative) POC Grp A Strep Screen Negative (Negative) Critical Care Time Critical Care Time Critical Care Time: No Discharge Plan Discharge Clinical Impression: Viral syndrome Patient Disposition: Home, Self-Care Condition: Stable Instructions: Antibiotic Form, Viral Syndrome (ED) Additional Instructions: Increase fluids especially juices and water [id number]-[id number] cough and cold medicine of your choice for your symptoms Zyrtec or Claritin, or Cathy heat to the face 20-30 minutes 4-6 times a day for pain Salt water gargles, throat lozenges or throat sprays as desired Your strep test today was negative. A throat culture will be sent to the laboratory for further testing. IF the test is positive, you will receive a phone call within 48 hours and an appropriate antibiotic will be initiated at that time. Clear liquids for the next 8-10 hours, then advance to a bland diet as tolerated A bland diet can consist of--BRAT diet which is bananas, rice, applesauce, and toast Avoid fried, greasy, fatty, fried foods Avoid caffeine, nicotine, and alcohol Return to your regular diet in the next 3-4 days Medication as directed for nausea and vomiting Recommend Tylenol only for any fever pain Sometimes ibuprofen/Aleve can cause increased stomach upset [id number] Imodium if develop diarrhea Follow-up with her PCP if continued problems or uncontrolled pain If your symptoms persist, change or worsen significantly before you can contact your personal physician then please, without delay, go to the emergency department for further evaluation. Follow-up with PCP in 7-10 days or sooner if needed Patient Language: French Prescriptions: New ondansetron 4 mg tablet,disintegrating 4 mg PO Q6H PRN (Reason: nausea and vomiting) Qty: 14 0RF dicyclomine 20 mg tablet 20 mg PO TID Qty: 20 0RF Rx Instructions: for any stomach cramping No Action cyclobenzaprine 10 mg tablet 10 mg PO TID PRN (Reason: muscle spasm) Qty: 20 0RF naproxen 500 mg tablet Follow-up/Referrals: UNKNOWN,DOCTOR [Primary Care Provider] - Stand Alone Forms: Work/School Release IP Time of Disposition: 10:23 Quality Matt Coma Scale Eyes: Open Verbal: Oriented and Alert Motor: Follows Commands Matt Coma Total Score: 15
[2024-05-26 10:26] LABS: EDCOVIDSCREEN Negative (Negative); EDINFLUASCREEN Negative (Negative); EDINFLUBSCREEN Negative (Negative); EDSTREPNEGPOS1 Negative (Negative)
== END 2024-05-26 10:25 | disposition home or self-care (01) ==
PROVIDERS: Emergency Provider Registered Nurse
DX: B34.9 Viral infection, unspecified (principal); F17.290 Nicotine dependence, other tobacco product, uncomplicated; Z20.822 Contact with and (suspected) exposure to COVID-19
CPT/HCPCS: 87081; 87426; 87804; 87880; 99213; G0463